=== PATIENT | female | born 1975 | race Caucasian/White ===

== ENCOUNTER 2022-09-26 07:56 | Outpatient (CLI) | payer OTHER, SELFPAY ==
--- NOTE | 2022-09-26 08:15 | CRLHL7_ITS ---
For Patients: As a result of the Century Cures Act, medical imaging exams and procedure reports are released immediately into your electronic medical record. You may view this report before your referring provider. If you have questions, please contact your health care provider. INDICATION: Menorrhagia COMPARISON: 04/18/2012 TECHNIQUE: 2D howell scale and color Doppler images were acquired of the pelvis using a transabdominal and transvaginal approach. FINDINGS: Sonographic images demonstrate an enlarged size and lobular outer contour of the uterus. Uterus measures 15.8 cm in length by 8.3 cm in AP diameter by 9.7 cm in transverse dimension. The myometrium has a heterogeneous echotexture. Multiple uterine fibroids are present which are intramural and submucosal measuring up to 4.0 cm. The endometrial lining measures 9 mm in composite thickness. Possible endometrial polyp in the lower uterine segment measuring 1.8 x 0.9 x 1.8 cm. The ovaries are not visualized. There are no suspicious fluid collections within the cul-de-sac. IMPRESSION: Multiple uterine fibroids have developed since the prior study measuring up to 4 cm. These fibroids are intramural and submucosal. Possible endometrial polyp measuring 18 millimeters. Dictated by David Salguero MD @ 09/26/2022 10:42:58 AM (Electronically Signed)
== END 2022-09-26 07:57 | disposition home or self-care (01) ==
PROVIDERS: PCP Physician Assistant; Visit Provider Obstetrics & Gynecology
DX: N92.0 Excessive and frequent menstruation with regular cycle (principal); D25.1 Intramural leiomyoma of uterus
CPT/HCPCS: 76830; 76856